=== PATIENT | male | born 1965 | race Caucasian/White ===

== ENCOUNTER 2021-08-10 07:54 | Outpatient (CLI) | payer OTHER, SELFPAY ==
[2021-08-10 09:50] LABS: SARS-CoV-2 RNA PCR Negative (Negative)
== END 2021-08-10 07:55 | disposition home or self-care (01) ==
LOC: CHSLAB 07:58
PROVIDERS: PCP Internal Medicine; Visit Provider Family Medicine
DX: Z01.818 Encounter for other preprocedural examination (principal); Z20.822 Contact with and (suspected) exposure to COVID-19
CPT/HCPCS: C9803; U0003; U0005

== ENCOUNTER 2024-12-29 09:29 | Outpatient (CLI) | payer OTHER, SELFPAY ==
[2024-12-29 09:50] LABS: Basophils Absolute Auto 0.08 K/mm3 (0.00-0.10); Basophils Percent Auto 1.5 % (0.0-1.0); Eosinophils Absolute Auto 0.07 K/mm3 (0.02-0.50); Eosinophils Percent Auto 1.3 % (1.0-6.0); Hematocrit 42.1 % (40.0-54.0); Hemoglobin 13.5 g/dL (14.0-18.0); Immature Granulocyte Absolute 0.02 K/mm3 (0.00-0.00); Immature Granulocyte Percent A 0.4 % (0.0-0.0); Lymphocytes Absolute Auto 1.34 K/mm3 (1.10-4.50); Lymphocytes Percent Auto 24.5 % (18.0-42.0); Mean Corpuscular HGB Conc 32.1 g/dL (32-36); Mean Corpuscular Hemoglobin 30.5 pg (27.0-31.0); Mean Platelet Volume 9.2 fl (8.7-11.0); Monocytes Absolute Auto 0.42 K/mm3 (0.10-0.90); Monocytes Percent Auto 7.7 % (2.0-11.0); Neutrophils Absolute Auto 3.55 K/mm3 (1.70-7.20); Neutrophils Percent Auto 64.6 % (50.0-70.0); Platelet Count Result 184 K/mm3 (150-420); Red Blood Count 4.43 M/mm3 (4.70-6.10); Red Cell Distribution Width 12.6 % (11.6-14.4); White Blood Count 5.5 K/mm3 (4.8-10.8)
--- OUTSIDE RECORDS SUMMARY | 2024-12-29 10:18 | XMS_ITS | Encounter Summary ---
Author Organization [facility] Address [address] [place] [address] Care Team Providers Care Battery Repairer Name Role Phone Stanton Siddiqui MD Primary Care Provider [phone] Sid Oseugera MD Primary Care Provider [phone] Encounter Details Date Type Department Care Team (Late st Contact Info) Description 03/06/2019 Abstract SFL CONVERSION [address] [place] [address] , Generic Conversion, Social History Tobacco Use Types Packs/Day Years Used Date Smoking Tobacco: Never Assessed Sex and Gender Information Value Date Recorded Sex Assigned at Not on file Legal Sex Male 8:38 PM CDT Gender Identity Not on file Sexual Orientation Not on file documented as of this encounter Plan of Treatment Not on file documented as of this encounter Visit Diagnoses Not on filedocumented in this encounter Care Teams Battery Repairer Relationship Specialty Start Date End Date Stanton Siddiqui MD PCP - General FAMILY PRACTICE 08/15/20 07/17/21 Sid Oseguera MD [address] [place] [phone] PCP - General FAMILY PRACTICE 07/18/21 documented as of this encounter
--- OUTSIDE RECORDS SUMMARY | 2024-12-29 10:18 | XMS_ITS | Clinical Summary ---
Author Organization [facility] Address [address] [place] [address] Care Team Providers Care Roll Form Operator Name Role Phone Sid Oseguera MD Primary Care Provider [phone] Allergies Active Allergy Reactions Criticality Noted Date Comments Cephalosporins Unknown 07/18/2021 Medications ENSTILAR 0.005-0.064 % Foam 01/12/2021 Active TRULICITY 1.5 MG/0.5ML Solution Pen-injector 07/02/2021 Active TALTZ 80 MG/ML Solution Auto-injector 07/05/2021 Activ e losartan 25 MG tablet 03/26/2021 Active metFORMIN 500 MG tablet 03/26/2021 Active simvastatin 20 MG tablet 07/02/2021 Active Social History Tobacco Use Types Packs/Day Years Used Date Smoking Tobacco: Never Smokeless Tobacco: Never Tobacco Cessation:Counseling Given: Not Answered Alcohol Use Standard Drinks/Week Comments Yes 0 (1 standard drink = 0.6 oz pur e alcohol) Sex and Gender Information Value Date Recorded Sex Assigned at Not on file Legal Sex Male 8:38 PM CDT Gender Identity Not on file Sexual Orientation Not on file Last Filed Vital Signs Vital Sign Reading Time Taken Comments Blood Pressure 124/80 08/14/2022 12:47 PM [employer] Pulse 82 08/14/2022 12:47 PM [employer] Temperature 36.9 C (98.5 F) 08/14/2022 12:47 PM [employer] Respiratory Rate 18 08/14/2022 12:47 PM [employer] Oxygen Saturation 97% 08/14/2022 12:47 PM [employer] Inhaled Oxygen Concentration - - Weight 98.9 kg (218 lb) 08/14/2022 12:47 PM [employer] Height 182.9 cm (6') 08/14/2022 12:47 PM [employer] Body Mass Index 29.57 08/14/2022 12:47 PM [employer] Plan of Treatment Health Maintenance Due Date Last Done Comments Colorectal Cancer Screening Colonoscopy (10 Years) 1963 Annual Physical 1966 Hepatitis C 1981 Zoster Vaccines (1 of 2) 2013 COVID-19 Vaccine (3 - season) 2024 11/24/2020, 11/03/2020 Influenza Adult (#1) 2024 06/13/2021, 05/30/2020, 07/01/2019, Additional history exists DTaP, Tdap and Td Vaccines (2 - Td or Tdap) 01/19/2025 01/19/2015 RSV Immunization or 60+ Years (1 - 1-dose 75+ series) 2038 Pneumococcal Vaccine: Pediatrics (0 to 5 Years) and At-Risk Patients (6 to 64 Years) Aged Out 08/04/2017 No longer eligible based on patient's age to complete this topic Meningococcal B Vaccine Aged Out No l onger eligible based on patient's age to complete this topic Meningococcal Vaccine Aged Out No miki deepthi eligible based on patient's age to complete this topic RSV Immunizations Under 20 Months Aged Out No longer eligible based on patient's age to complete this topic Insurance [employer] Care Teams Roll Form Operator Relationship Specialty Start Date End Date Sid Oseguera MD [address] [place] [phone] PCP - General FAMILY PRACTICE 07/18/21
[2024-12-29 10:45] LABS: Alanine Aminotransferase 28 U/L (16-63); Alkaline Phosphatase 85 U/L (46-116); Anion Gap 7 mmol/L (4-12); Aspartate Amino Transferase 13 U/L (15-37); Bilirubin,Total 0.5 mg/dL (0.00-1.00); Blood Urea Nitrogen 22 mg/dL (7-18); Calcium 8.8 mg/dL (8.5-10.1); Carbon Dioxide 29 mmol/L (21-32); Chloride 102 mmol/L (98-108); Estimated Glomerular Filt Rate > 60; Glucose 127 mg/dL (70-99); Iron 66 ug/dL (65-175); Osmolality Calculated 291 mOsm/kg (285-295); Percent Iron Saturation 22 % (12-57); Potassium 4.5 mmol/L (3.5-5.1); Sodium 138 mmol/L (136-145); Total Protein 7.4 g/dL (6.4-8.2); Vitamin B12 715 pg/mL (193-986)
[2024-12-29 10:46] LABS: Folic Acid > 20.0 ng/mL (8.6->20)
== END 2024-12-29 09:30 | disposition home or self-care (01) ==
PROVIDERS: PCP Physician Assistant; Visit Provider Internal Medicine Hematology
DX: C92.00 Acute myeloblastic leukemia, not having achieved remission (principal)
CPT/HCPCS: 36415; 80053; 82607; 82746; 83540; 83550; 85025